=== PATIENT | female | born 1945 | race Caucasian/White ===

== ENCOUNTER 2024-08-31 06:54 | Day surgery (SDC) | payer MEDICARE, BC ==
[2024-08-29 10:51] VITALS: BP 105/66
[~2024-08-31] VITALS: Ht 162.6 cm; Wt 86.8 kg
[~2024-08-31 06:54] MED LIST: propofoL 200 MG/20 ML VIAL ONE
[2024-08-31] MEDS ORDERED: LACTATED RINGER'S 1,000 ML IV SCH (07:00)
[2024-08-31] MEDS ORDERED: IBLOOD GLUCOSE TEST STRIP 1 EA TEST VI PRN (07:00)
[2024-08-31] MEDS ORDERED: LIDOCAINE HCL 1% 5 ML SDV INJ ONE (07:00)
[2024-08-31 07:10] VITALS: BP 121/52
--- NOTE | 2024-08-31 07:34 | NUR ---
VISITED DURING SPIRITUAL CARE ROUNDS. PT EXPRESSED SOME SIGNS OF ANXIETY, STATED NERVOUSNESS ABOUT PROCEDURE AND POTENTIAL RESULTS. METAL DRILLING MACHINE OPERATOR PROVIDED SUPPORTIVE PRESENCE, ANXIETY CONTAINMENT, HOSPITALITY, PRAYER. PT EXPRESSED GRATITUDE.
--- NOTE | 2024-08-31 09:14 | NUR ---
08/31/24 0914 NILESH LUNSFORD 0855 PT ARRIVED TO PACU VIA STREACHER, PT HAS ORAL AIRWAY IN PLACE AND 10L O2 VIA MASK. PT BREATHING EQUAL AND UNLABORED. REPORT TAKEN FROM VERONIQUE BECKER. 0856 OXYGEN LOWERED TO 6L VIA FACE MASK. 0859 AFTER BP TAKEN ROSITA GAVE PT MEDICATION TO INCREASE BP, SEE ANESTHEISA BLUE SHEET. 0900 PT HAS BOUTS OF BRADYCARDIA, PT REACTIVE TO VERBAL STIMULI. 0910 PT REMOVED FROM OXYGEN, PT OXYGEN SATURATION STAYING ABOVE 96% ON RA. PT SITTING UPRIGHT AND TALKING. AT BEDSIDE TALKING WITH PT.
[2024-08-31 09:45] VITALS: BP 133/74
--- NOTE | 2024-08-31 10:15 | OR ---
[facility] [address] [place], [place] [address] Signed DATE OF OPERATION: 08/31/2024 SURGEON: Jesús Stout MD PREOPERATIVE DIAGNOSES: 1. Chronic esophageal dysphagia. 2. 1.5 x 1.0 cm lesion in mid upper esophagus. 3. Presbyesophagus (2019). POSTOPERATIVE DIAGNOSES: 1. 1.5 cm polypoid esophageal lesion at 18 cm (snare). 2. Mild Schatzki's ring. 3. GE junction at 32 cm. 4. A small hiatal hernia. 5. Minimal distal gastritis. 6. Minimal to moderate distal esophagitis. PROCEDURE: EGD with CLOtest and biopsies of the antrum and snare. ESTIMATED BLOOD LOSS: None. INDICATIONS: Nataliia is a 79-year-old female, who was asked to see me for an upper endoscopy. She has had some issues with esophageal dysphagia in the last few years as she is growing older. She went to see her ear, nose and throat surgeon, Dr. Calvillo, in 2019. It was felt that she probably had presbyesophagus. She had been through a barium swallow at that time. She is having trouble over the last year with increasing proximal esophageal dysphagia to solid foods. She said sometimes even saliva gives her trouble. She had a repeat barium swallow in June of 2020, which revealed a 1.5 x 1 cm lesion in the mid upper esophagus. This represents a filling defect. CT scan a few days later showed the same lesion about 1.3 cm in diameter. There is no metastatic disease in her chest. She tells me she has never smoked, drank alcohol or chewed snuff. She has not been exposed to any secondhand smoke or organic chemicals. 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 She has had heart murmur since she was a teenager. She follows closely with her life science technical officer, Dr. Blackburn. Her gradient has increased from 26 up to 40 mg on her last office visit. He therefore wanted her to come in six months rather than one year. He felt that she would be okay for monitored anesthesia care for the upper endoscopy. Electronically Signed By: JESÚS STOUT MD 08/31/24 1015 PATIENT NAME: NATALIIA CERVANTES OPERATIVE REPORT DATE OF : 47 REPORT #: [id number] PHYSICIAN: JESÚS STOUT MD PCP: MELISA FAUSTIN MD REPORT IS CONFIDENTIAL AND NOT TO BE RELEASED WITHOUT AUTHORIZATION [facility] [address] [place], [place] [address] Signed Amazingly, she takes no medications and currently she has no symptoms, although her overall functional status is on the lower side. In the office, I had given her a pamphlet on upper endoscopy. We had reviewed the nature of the test. There is risk including, but not limited to gas bloating, crampy abdominal pain, bleeding, perforation requiring surgery, and missed diagnosis. We also reviewed the need for monitored anesthesia care given her significant aortic stenosis along with her full round face and heavy chest and abdomen. She had expressed understanding and wished to proceed. She understands an adult person has to take her home afterwards. She said her friend would be available. She had expressed understanding and wished to proceed. PROCEDURE IN DETAIL: Nataliia was taken into our endoscopy suite and placed in the supine semi-recumbent position. She was given monitored anesthesia care with propofol infusion per our nurse media production manager. A bite block was utilized for the case. We did not use any lidocaine in the posterior oropharynx. The adult gastroscope was introduced and advanced under direct visualization of the camera. The vocal cords were unremarkable. We went down to 18 cm and could easily see there is 1.5 cm polypoid lesion on the stalk. We passed the lesion and found that she probably has a bit of mild Schatzki's ring at the GE junction at 32 cm. From above, it looks like she has just a small hiatal hernia. She had several areas of linear vertical inflammatory changes in the distal esophagus consistent with distal esophagitis. The scope was passed into the stomach and then out into the duodenum. The duodenum and pyloric channel were unremarkable. She has minimal if any inflammatory changes in her stomach. We went ahead and took a biopsy of the antrum for CLOtest as well as pathologic review. Upon retroflexion of the scope, I really could not appreciate an obvious hiatal hernia from below. The scope was withdrawn up through the area of the GE junction, which was compliant without stricture. Again from above, it looks like she has just a small hiatal hernia. Also, just a mild Schatzki's ring. We went ahead and took a biopsy from the distal esophagus because of the esophagitis. The middle esophagus was unremarkable. Again, we found this polypoid lesion at 18 cm from the incisors. We placed a wire over this and divided it from the esophagus without difficulty using our cautery. We feel that the entire lesion was thus removed. There was no bleeding. We captured the polypoid lesion in our basket and we brought it out for pathologic review. The scope was passed back in the esophagus and out in the stomach and back up the esophagus once again. We found everything to be quite satisfactory. After this, the gas was suctioned out and the gastroscope removed. We did notice in Nataliia's esophagus she does have a lot of white sticky saliva which is consistent with most likely presbyesophagus. After this, the gastroscope was removed. Nataliia tolerated her procedure quite well. RECOMMENDATIONS: I will see Nataliia back in my office in 7 to 14 days to review her results. Electronically Signed By: JESÚS STOUT MD 08/31/24 1015 PATIENT NAME: NATALIIA CERVANTES OPERATIVE REPORT DATE OF : 47 REPORT #: [id number] PHYSICIAN: JESÚS STOUT MD PCP: MELISA FAUSTIN MD REPORT IS CONFIDENTIAL AND NOT TO BE RELEASED WITHOUT AUTHORIZATION [address] [address] Signed Jesús Stout MD ALB/MODL /[id number] cc: MD Balta Torres MD Copies: LUCRETIA BLACKBURN MD, GARY MD ~ Electronically Signed By: JESÚS STOUT MD 08/31/24 1015 PATIENT NAME: NATALIIA CERVANTES OPERATIVE REPORT DATE OF : 47 REPORT #: [id number] PHYSICIAN: JESÚS STOUT MD PCP: MELISA FAUSTIN MD REPORT IS CONFIDENTIAL AND NOT TO BE RELEASED WITHOUT AUTHORIZATION
[2024-08-31] MEDS ORDERED: PHENYLEPHRINE HCL 10 MG/ML VIAL ONE (11:12)
--- NOTE | 2024-09-07 17:16 | PATH ---
[facility] [address] [facility] [place], [place] [address] Signed SPECIMEN(S): A ANTRUM BIOPSY SPECIMEN(S): B GE JUNCTION BIOPSY SPECIMEN(S): C ESOPHAGUS POLYP AT 10 CM SPECIMEN(S): D LOWER ESOPHAGEAL BIOPSY SPECIMEN SOURCE: A. ANTRUM BIOPSY B. GE JUNCTION BIOPSY C. ESOPHAGUS POLYP AT 10 CM D. LOWER ESOPHAGEAL BIOPSY CLINICAL HISTORY: Esophageal dysphagia. Post-op: gastritis, esophagitis, esophageal polyp, small hiatal hernia. FINAL PATHOLOGIC DIAGNOSIS: A. Antrum biopsy: - Gastric mucosa with diffuse superficial mild chronic gastritis. - A Helicobacter pylori immunostain is negative for organisms. B. GE junction biopsy: - Esophageal mucosa with reactive features, negative for significantly increased epithelial eosinophils. - Negative for glandular mucosa. C. Esophagus polyp at 10 cm: - Squamous fibroepithelial polyp with bland submucosal spindle cell proliferation (see comment). - Negative for high-grade dysplasia or malignancy. - Negative for significantly increased epithelial eosinophils. D. Lower esophageal biopsy: - Benign esophageal epithelium with reactive features and occasional epithelial eosinophils (up to approximately 7 per high power field). - Negative for glandular mucosa. - See Comment. 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 Negative for atypical features. (Specimen D) The epithelial eosinophils are insufficient for the diagnosis of eosinophilic esophagitis. Clinical correlation requested. MelanieVR:marva PATIENT NAME: ALHAJI CERVANTES PATHOLOGY DATE OF : 47 REPORT #: [id number] PHYSICIAN: ANTHONY PATHOLOGY PCP: MELISA FAUSTIN MD REPORT IS CONFIDENTIAL AND NOT TO BE RELEASED WITHOUT AUTHORIZATION [facility] [address] [place], [place] [address] Signed MICROSCOPIC EXAMINATION: Histologic sections of all submitted blocks are examined by light microscopy. These findings, together with the gross examination, support the pathologic diagnosis. A. A Helicobacter pylori immunostain is performed with appropriate positive and negative controls on block A1 and is negative for organisms. JVR:marva GROSS DESCRIPTION: A. The specimen, labeled and designated "Valentin, S, per the requisition antrum/pylorus biopsy," is received in formalin and consists of one erazo soft tissue fragment, 0.4 cm. Entirely submitted in (A1). B. The specimen, labeled and designated "Valentin, S, per the requisition E.G. Junction biopsy," is received in formalin and consists of one 0 tissue fragment, 0.3 cm. Entirely submitted in (B1). C. The specimen, labeled and designated "Valentin S, per the requisition esophagus polyp at 10 cm," is received in formalin and consists of one erazo soft tissue fragment, 1.5 x 1.0 x 0.7 cm. The tissue sample was inked blue and quadrisected. Entirely submitted in (C1). D. The specimen, labeled and designated "Estebanky, S, per the requisition lower esophageal biopsy," is received in formalin and consists of one erazo soft tissue fragment, 0.5 cm. Entirely submitted in (D1). AB (under the direct supervision of a pathologist) The Gross Description was prepared using a voice recognition system. The report was reviewed for accuracy; however, sound-alike word errors, addition and/or deletions may occur. If there is any question about this report, please contact Client Services. ADDITIONAL NOTES: Immunohistochemical and/or in situ hybridization studies were performed on this case with the appropriate positive controls that react as expected. This test was developed and its performance characteristics determined by [facility]. It has not been cleared or approved by the U.S. Food and Drug Administration. The FDA has determined that such clearance or approval is not necessary. This test is used for clinical purposes. It should not be regarded as investigational or for research. [facility] is certified under the Clinical Laboratory Improvement Amendments of 1988 (CLIA) as qualified to perform high complexity clinical PATIENT NAME: ALHAJI CERVANTES PATHOLOGY DATE OF : 47 REPORT #: [id number] PHYSICIAN: BLASFresh Dish JUNAID PCP: MELISA FAUSTIN MD REPORT IS CONFIDENTIAL AND NOT TO BE RELEASED WITHOUT AUTHORIZATION [facility] [address] [place], [place] [address] Signed laboratory testing. This assay has not been validated for specimens that have been decalcified. PERFORMING LABORATORY: Technical component was performed by [facility], [address] [place] [id number] (CLIA# [id number]). Professional interpretation was performed by [facility] - [facility], [address] [place] [address], [place] [address] (CLIA#: [id number]). Diagnostician: Doc Natarajan MD Pathologist Electronically Signed 09/07/2024 Copies: ~ PATIENT NAME: ALHAJI CERVANTES PATHOLOGY DATE OF : 47 REPORT #: [id number] PHYSICIAN: ANTHONY PATHOLOGY PCP: MELISA FAUSTIN MD REPORT IS CONFIDENTIAL AND NOT TO BE RELEASED WITHOUT AUTHORIZATION
== END 2024-08-31 09:42 | disposition home or self-care (01) ==
LOC: DS 06:54
PROVIDERS: ATTEND Colon & Rectal Surgery
PROC: 0DB78ZX Excision of Stomach, Pylorus, Via Natural or Artificial Opening Endoscopic, Diagnostic (ICD-10-PCS; principal; 2024-08-31 08:10)
DX: K22.81 Esophageal polyp (principal); K22.2 Esophageal obstruction; K44.9 Diaphragmatic hernia without obstruction or gangrene; K20.90 Esophagitis, unspecified without bleeding; E78.5 Hyperlipidemia, unspecified; M85.80 Other specified disorders of bone density and structure, unspecified site; Z88.1 Allergy status to other antibiotic agents; K29.50 Unspecified chronic gastritis without bleeding
CPT/HCPCS: 00731; 36415; 87077; 88305; 88342; J2371; J2704

== ENCOUNTER 2024-12-19 13:15 | Emergency (ER) | payer MEDICARE, BC ==
[~2024-12-19] VITALS: Ht 162.6 cm; Wt 85.7 kg
[2024-12-19 16:55] LABS: BASOPHILS 0.9 % (0-2); EOSINOPHILS 5.5 % (0-6); HEMATOCRIT 42.7 % (35.0-50.0); HEMOGLOBIN 14.5 g/dL (12.0-18.0); LYMPHOCYTES 20.7 % (24-44); MCH 29.4 (27-36); MCHC 33.9 g/dl (30-36); MCV 86.8 fl (81-99); MONOCYTES 10.2 % (0-12); NEUTROPHILS 62.7 % (39-80); PLATELET COUNT 227 K/uL (140-440); RBC 4.92 M/ul (4.3-5.7); RDW 15.4 (10.5-15.0)
[2024-12-19 17:10] LABS: ALBUMIN 3.6 g/dL (3.4-5.0); ALBUMIN/GLOBULIN RATIO 0.95 (1.1-2.4); ANION GAP 10.8 (7-21); BILIRUBIN, TOTAL 0.6 ng/dL (0.2-1.0); BUN/CREATININE RATIO 17.1 (6.0-28.6); CALCIUM 9.4 mg/dL (8.5-10.1); CREATININE, SERUM 0.76 mg/dL (0.55-1.02); POTASSIUM 3.8 mmol/L (3.5-5.1); PROTEIN, TOTAL 7.4 g/dL (6.4-8.2)
[2024-12-19 17:29] VITALS: BP 110/59
--- NOTE | 2024-12-20 18:13 | EKG ---
[facility] [address] [facility] [place], [place] [address] Signed Sinus rhythm with 1st degree AV block Prolonged QT Abnormal ECG No previous ECGs available Confirmed by Maryann Rachel MD ([id number]) on 12/20/2024 6:13:37 PM Electronically Signed By: MARYANN RACHEL MD 12/20/241812 PATIENT NAME: ALHAJI CERVANTES Electrocardiogram DATE OF : 47 PHYSICIAN: MARYANN RACHEL MD REPORT #: [id number] REPORT IS CONFIDENTIAL AND NOT TO BE RELEASED WITHOUT AUTHORIZATION
== END 2024-12-19 17:30 | disposition home or self-care (01) ==
LOC: ED 13:15
PROVIDERS: Emergency Medicine
DX: M79.604 Pain in right leg (principal); Z88.8 Allergy status to other drugs, medicaments and biological substances
CPT/HCPCS: 36415; 73610; 80053; 85025; 85379; 93005; 93010; 93971; 99284-25

== ENCOUNTER 2025-04-02 14:55 | Emergency (ER) | payer OTHER, MEDICARE, BC | END 2025-04-02 17:25 | disposition home or self-care (01) | LOC: ED 14:55 | DX: M54.50 Low back pain, unspecified (principal); W01.0XXA Fall on same level from slipping, tripping and stumbling without subsequent striking against object, initial encounter; Z79.899 Other long term (current) drug therapy ==